=== PATIENT | female | born 2000 | race Two or more races ===

== ENCOUNTER 2024-12-17 23:03 | Emergency (ER) | payer MEDICAID, SELFPAY ==
[2024-12-17 23:04] VITALS: BMI 22.0
[2024-12-17 23:23] VITALS: BP 104/65; PULSE 86; RESP 18; TEMP 37; O2SAT 99
--- NOTE | 2024-12-17 23:54 | PD.EDRME ---
Rapid Medical Screening Exam RME Arrival date/time: 12/17/24 23:03 24-year-old female presents emergency department complaining of diffuse abdominal pain and vomiting. Patient reports is approximately 7 weeks . Patient reports 1. Chief Complaint: Abdominal Pain Time Seen by Provider: 12/17/24 23:38 Vital signs: Vital Signs Temperature 98.6 F 12/17/24 23:23 Pulse Rate 86 12/17/24 23:23 Respiratory Rate 18 12/17/24 23:23 Blood Pressure 104/65 12/17/24 23:23 Pulse Oximetry (%) 99 12/17/24 23:23 Oxygen Delivery Method Room Air 12/17/24 23:23 Vital signs reviewed by provider: Yes
[2024-12-17] MEDS: METOCLOPRAMIDE 5 MG TABLET 10 MG PO (23:57)
[2024-12-18 00:10] LABS: Basophils % (Auto) 0 % (0-2.5); Eosinophils # (Auto) 0.1 Thou/mm3 (0.0-0.5); Eosinophils % (Auto) 1 % (0-10); Hematocrit 35.1 % (36.0-46.0); Hemoglobin 11.9 g/dL (12.0-16.0); Immature Granulocytes % (Auto) 0 % (0-0); Immature Granulocytes Auto 0.02 Thou/mm3 (0.00-0.00); Lymphocytes # (Auto) 1.6 Thou/mm3 (1.0-4.8); Lymphocytes % (Auto) 16 % (10-50); Mean Corpuscular HGB Conc 33.9 g/dl (31.0-37.0); Mean Corpuscular Hemoglobin 28.3 pg (25.0-35.0); Mean Corpuscular Volume 84 fL (80-100); Monocytes # (Auto) 0.8 Thou/mm3 (0.0-0.8); Monocytes % (Auto) 8 % (0-12); Neutrophils # (Auto) 7.6 Thou/mm3 (1.8-7.7); Neutrophils % (Auto) 75 % (37-80); Nucleated Red Blood Cell % 0 /100 WBC (0); Platelet Count 184 Thou/mm3 (140-440); RDW Standard Deviation 39.4 fL (36.4-46.3); White Blood Count 10.1 Thou/mm3 (3.6-11.0)
[2024-12-18 00:28] LABS: Collection Type, Urine Clean Catch
[2024-12-18 00:38] LABS: Bacteria,Urine 1+; Bilirubin,Urine Negative (Negative); Blood,Urine Negative (Negative); Clarity,Urine Turbid (Clear/Hazy); Color,Urine Yellow (Lt Yel-Yel); Glucose, Urine Negative (Negative); Ketones,Urine Trace (Negative); Leukocyte Esterase,Urine Positive (Negative); Nitrite,Urine Negative (Negative); PH,Urine 6.5 (5.0-7.0); Protein,Urine Trace (Neg - Trace); RBC,Urine 4 /hpf (0-3); Specific Gravity,Urine 1.031 (1.001-1.035); Squamous Epithelial Cell,Urine 6 /hpf (0-5); Urobilinogen,Urine Negative mg/dL (0.0-1.0); WBC,Urine 9 /hpf (0-5)
[2024-12-18 00:53] LABS: Alanine Aminotransferase 7 U/L (10-49); Albumin, Serum 4.3 gm/dL (3.5-5.0); Albumin/Globulin Ratio 1.5 (1.2-2.2); Alkaline Phosphatase 64 U/L (46-116); Anion Gap 7 (7-16); Aspartate Amino Transferase 20 U/L (0-34); BUN/Creatinine Ratio 22 Ratio (12-20); Bilirubin,Total 0.4 mg/dL (0.3-1.2); Blood Urea Nitrogen 13 mg/dL (9-23); Calcium 9.7 mg/dL (8.3-10.6); Calcium (Corrected) 9.7 mg/dL (8.5-10.1); Carbon Dioxide 25.8 mMol/L (20.0-31.0); Chloride 107 mMol/L (98-107); Creatinine (Component) 0.6 mg/dL (0.6-1.3); Estimated Creatinine Clearance 98.6 mL/min (>60); Globulin 2.8 gm/dL (2.3-3.5); Glucose 100 mg/dL (74-106); Lipase 41 U/L (12-53); Osmolality,Calculated 279 (275-295); Potassium 3.6 mMol/L (3.4-5.1); Sodium 140 mMol/L (136-145); Total Protein 7.1 gm/dL (5.7-8.2); eGFR > 60 See Note
[2024-12-18 01:03] LABS: Culture Indicated,Urine Yes
--- NOTE | 2024-12-18 01:05 | PC.NURSE ---
PER SECURITY PT WALKED OUT AND LEFT WITH FAMILY MEMBER
[2024-12-18 01:09] LABS: Amphetamine/Methamp Scrn,U Negative (Negative); Barbiturate Screen,Urine Negative (Negative); Benzodiazepines Screen,Urine Negative (Negative); Benzoylecgonine Screen, Ur Negative (Negative); Fentanyl Screen,Urine Negative (Negative); Opiate Screen,Urine Negative (Negative); THC Screen,Urine Positive (Negative)
[2024-12-18 01:26] LABS: Beta HCG,Quantitative 50326 mIU/mL (<5.0)
== END 2024-12-18 01:06 | disposition left against medical advice (07) ==
LOC: SERX 12-18 02:42
PROVIDERS: Emergency Provider Emergency Medicine
DX: O26.891 Other specified pregnancy related conditions, first trimester (principal); R10.84 Generalized abdominal pain; O21.9 Vomiting of pregnancy, unspecified; Z3A.01 Less than 8 weeks gestation of pregnancy; Z53.29 Procedure and treatment not carried out because of patient's decision for other reasons
CPT/HCPCS: 36415; 80053; 80307; 81001; 83690; 84702; 85025; 87086; 99283; A9270